=== PATIENT | female | born 1960 | race Caucasian/White ===

== ENCOUNTER 2016-09-06 06:32 | Day surgery (SDC) | payer MEDICARE, MEDICAID ==
[2016-09-06] MEDS ORDERED: Sodium Chloride 0.9% 1,000 ML IV SCH (07:30)
[2016-09-06] MEDS ORDERED: fentaNYL 100 MCG/2 ML SDV ONE (08:18)
[2016-09-06] MEDS ORDERED: Propofol 200 MG/20 ML SDV ONE (08:18)
--- NOTE | 2016-09-06 08:49 | PCM.OPNOTE ---
- General Post-Op/Procedure Note Date of Surgery/Procedure: 09/06/16 Operative Procedure(s): Gastroesophageal duodenoscopy Findings: Retained food in the stomach, distal esophageal mucosal erythema, gastritis mucosal erythema with biopsies pending for Helicobacter pylori, CLOtest. Pre Op Diagnosis: GERD Post-Op Diagnosis: #1. Retained food in the stomach. #2. Gastric mucosal erythema. #3. Distal esophageal mucosal erythema. #4. Mild duodenal mucosal erythema. Biopsy pending for Helicobacter pylori of the gastric mucosa Primary Surgeon: Nelson Warner Sr Condition: Good Free Text/Narrative:: Susan is a 56-year-old female comes in for an esophageal gastroduodenoscopy because of the significant gastroesophageal reflux with any food. She does have significant pain almost immediately after she eats. The risks and benefits were explained to her for an esophageal gastroduodenoscopy. The Olympus 180 scope was used. Anesthesia was given by nurse tent worker. During the procedure use 100 mcg fentanyl and and 30 mg of propofol. The tube was placed into the pharynx and esophagus without difficulty and advanced under direct vision. At the distal esophagus noted significant distal esophageal mucosal erythema. The tube was brought into the stomach which revealed a large amount of fluid retention and retention of blue pills. We finally did get an further and identified the pylorus and the tube was advanced into the first second part of the duodenum. Upon retraction of the tube noted mild duodenal erythema. The tube was brought back into the stomach there revealed mucosal erythema biopsies done for Helicobacter pylori. We got limited observation of the greater and lesser curvature because of retained food particles. There is erythema noted in the fundus area. The GE junction was identified at 40 cm there is erythema noted in that area. The remainder the esophagus was unremarkable. The vocal cords move symmetrically no obvious pathology noted the tube was removed the patient tolerated the procedure well. Preop: Gastroesophageal reflux pain. Postop: #1 distal esophageal mucosal erythema. #2. Retained food in the stomach. #3. Gastric mucosal erythema biopsies pending for Helicobacter pylori. #4. Mild duodenal mucosal erythema. I will follow through with her in the office after the biopsy is reported.
[2016-09-06 09:51] VITALS: BP 101/62
== END 2016-09-06 10:05 | disposition home or self-care (01) ==
LOC: JP.SDS 06:32
PROVIDERS: ATTEND Internal Medicine
DX: T18.2XXA Foreign body in stomach, initial encounter (principal); K31.89 Other diseases of stomach and duodenum; I10 Essential (primary) hypertension; F32.9 Major depressive disorder, single episode, unspecified; K21.9 Gastro-esophageal reflux disease without esophagitis; F17.210 Nicotine dependence, cigarettes, uncomplicated
CPT/HCPCS: 43239; 87081; J2704; J3010; J7040

== ENCOUNTER 2017-03-12 20:48 | Inpatient (IN) | payer MEDICARE, MEDICAID ==
--- NOTE | 2017-03-12 21:03 | EDM.PDOC ---
ED HPI GENERAL MEDICAL PROBLEM - General Stated Complaint: [facility] Time Seen by Provider: 03/12/17 20:50 Source of Information: Reports: Patient, EMS History Limitations: Reports: Altered Mental Status - History of Present Illness INITIAL COMMENTS - FREE TEXT/NARRATIVE: 56-year-old female who tonight took "a half a bottle" of 50 mg trazodone pills. She's also been drinking alcohol all day. She intended to hurt herself. She was hypotensive in route and lethargic but answering questions appropriately and responds to verbal stimulus. Her blood pressure is now normalized after a 500 mL bolus. GCS is 12. Onset: Unknown/Unsure (Likely roughly 2 hours ago) Severity: Moderate Improves with: Reports: Other (Vitals improved with fluid bolus) Back Pain Score (Numeric/FACES): 8 - Related Data Allergies Allergy/AdvReac Type Severity Reaction Status Date / Time No Known Allergies Allergy Verified 09/06/16 06:50 Home Meds: Home Meds Cholecalciferol (Vitamin D3) [Vitamin D3] 2,000 unit PO DAILY 09/04/16 [History] Cranberry Extract [Cranberry] 500 mg PO DAILY 09/04/16 [History] Cyclobenzaprine HCl 10 mg PO DAILY PRN 09/04/16 [History] FLUoxetine [PROzac] 20 mg PO DAILY 09/04/16 [History] Lisinopril 40 mg PO DAILY 09/04/16 [History] Metoprolol Succinate [Toprol XL] 25 mg PO DAILY 09/04/16 [History] Milk Thistle Seed Extract [Milk Thistle] 200 mg PO DAILY 09/04/16 [History] Multivits,Ca,Minerals/Iron/FA [Women's Daily Formula Caplet] 1 each PO DAILY [History] Omeprazole 20 mg PO DAILY 09/04/16 [History] Prednisone [IJP: Prednisone] 10 mg PO DAILY PRN 09/04/16 [History] Prochlorperazine Maleate [Compazine] 20 mg PO QID PRN 09/04/16 [History] traZODone 100 mg PO BEDTIME 09/04/16 [History] Past Medical History HEENT History: Reports: Impaired Vision Cardiovascular History: Reports: Hypertension Respiratory History: Reports: COPD Gastrointestinal History: Reports: Colon Polyp, GERD Genitourinary History: Reports: UTI, Recurrent, Other (See Below) Other Genitourinary History: cirrosis of the liver Musculoskeletal History: Reports: Back Pain, Chronic Neurological History: Reports: Concussion, Headaches, Chronic Psychiatric History: Reports: Depression, PTSD - Infectious Disease History Infectious Disease History: Reports: Chicken Pox, Hepatitis C, Influenza, Measles - Past Surgical History HEENT Surgical History: Reports: Oral Surgery Female Surgical History: Reports: Breast Biopsy Musculoskeletal Surgical History: Reports: Other (See Below) Social & Family History - Tobacco Use Smoking Status *Q: Current Every Day Smoker Years of Tobacco use: 44 Packs/Tins Daily: 0.5 Used Tobacco, but Quit: No - Caffeine Use Caffeine Use: Reports: Coffee - Recreational Drug Use Recreational Drug Use: Yes Drug Use in Last 12 Months: Yes Recreational Drug Type: Reports: Marijuana/Hashish Recreational Drug Use Frequency: Weekly Recreational Drug Last Use: 09/05/2016 ED ROS GENERAL - Review of Systems Review Of Systems: Unable To Obtain (Patient admits to trying to hurt herself but really doesn't want to answer any other questions) ED EXAM, GENERAL - Physical Exam Exam: See Below Exam Limited By: Intoxication General Appearance: Lethargic Eye Exam: Bilateral Eye: EOMI Respiratory/Chest: No Respiratory Distress Cardiovascular: Regular Rate, Rhythm GI/Abdominal: Soft Extremities: Normal Inspection. No: Pedal Edema Neurological: Slow to Respond Skin Exam: Warm, Dry Course - Vital Signs Last Recorded V/S: Last Vital Signs Temp 98.2 F 03/12/17 22:55 Pulse 82 03/12/17 22:55 Resp 18 03/12/17 22:55 BP 123/56 L 03/12/17 22:55 Pulse Ox 91 L 03/12/17 22:55 - Orders/Labs/Meds Orders: Active Orders 24 hr Category Date Time Status Patient Status [ADT] Routine ADT 03/12/17 21:55 Active Ambulate [RC] QID Care 03/12/17 21:55 Active Height and Weight [RC] UPON Care 03/12/17 21:55 Active Intake and Output [RC] QSHIFT Care 03/12/17 21:59 Active May Shower [RC] ASDIRECTED Care 03/12/17 21:55 Active Oxygen Therapy [RC] PRN Care 03/12/17 21:55 Active Up to Chair [RC] QID Care 03/12/17 21:55 Active VTE/DVT Education [RC] Per Unit Routine Care 03/12/17 21:55 Active Vital Signs [RC] Q4H Care 03/12/17 21:55 Active Regular Diet [DIET] Diet 03/13/17 Breakfast Active BASIC METABOLIC PANEL,BMP [CHEM] AM Lab 03/13/17 05:11 Ordered CULTURE URINE [RM] Stat Lab 03/12/17 21:30 Received FLUoxetine [PROzac] Med 03/13/17 09:00 Active 20 mg PO DAILY Pantoprazole [ProTONIX] Med 03/13/17 07:30 Active 40 mg PO ACBREAKFAST Sodium Chloride 0.9% [Normal Saline] 1,000 ml Med 03/12/17 21:15 Active IV ASDIRECTED Thiamine [Vitamin B-1] Med 03/13/17 09:00 Active 100 mg PO BID Resuscitation Status Routine Resus Stat 03/12/17 21:55 Ordered Medication Orders Fluoxetine HCl (Prozac) 20 mg PO DAILY TARA Sodium Chloride (Normal Saline) 1,000 mls @ 1,000 mls/hr IV ASDIRECTED TARA Last Admin: 03/12/17 21:10 Dose: 1,000 mls/hr Dextrose/Sodium Chloride (Dextrose 5%-Normal Saline) 1,000 mls @ 75 mls/hr IV ASDIRECTED TARA Last Admin: 03/12/17 23:33 Dose: 75 mls/hr Pantoprazole Sodium (Protonix) 40 mg PO ACBREAKFAST TARA Thiamine HCl (Vitamin B-1) 100 mg PO BID [facility] Labs: Laboratory Tests 03/12/17 03/12/17 03/12/17 Range/Units 21:03 21:03 21:03 WBC 9.9 (4.5-11.0) K/uL RBC 4.96 (3.30-5.50) M/uL Hgb 15.5 H (12.0-15.0) g/dL Hct 45.4 (36.0-48.0) % MCV 92 (80-98) fL MCH 31 (27-31) pg MCHC 34 (32-36) % Plt Count 256 (150-400) K/uL Neut % (Auto) 38 (36-66) % Lymph % (Auto) 49 H (24-44) % Citrus % (Auto) 9 H (2-6) % Eos % (Auto) 4 (2-4) % Baso % (Auto) 0 (0-1) % Sodium 140 (140-148) mmol/L Potassium 3.5 L (3.6-5.2) mmol/L Chloride 107 (100-108) mmol/L Carbon Dioxide 22 (21-32) mmol/L Anion Gap 14.5 H (5.0-14.0) mmol/L BUN 10 (7-18) mg/dL Creatinine 0.8 (0.6-1.0) mg/dL Est Cr Clr Drug Dosing 63.41 mL/min Estimated GFR (MDRD) > 60 (>60) Glucose 90 (74-106) mg/dL Calcium 8.1 L (8.5-10.1) mg/dL Total Bilirubin 0.4 (0.2-1.0) mg/dL AST 25 (15-37) U/L ALT 20 (12-78) U/L Alkaline Phosphatase 68 (46-116) U/L Total Protein 7.3 (6.4-8.2) g/dL Albumin 3.2 L (3.4-5.0) g/dL Globulin 4.1 H (2.3-3.5) g/dL Albumin/Globulin Ratio 0.8 L (1.2-2.2) Urine Color Urine Appearance Urine pH (4.5-8.0) Ur Specific [place] (1.008-1.030) Urine Protein (NEGATIVE) mg/dL Urine Glucose (UA) (NEGATIVE) mg/dL Urine Ketones (NEGATIVE) mg/dL Urine Occult Blood (NEGATIVE) Urine Nitrite (NEGATIVE) Urine Bilirubin (NEGATIVE) Urine Urobilinogen (NORMAL) mg/dL Ur Leukocyte Esterase (NEGATIVE) Urine RBC (0-5) Urine WBC (0-5) Ur Epithelial Cells Amorphous Sediment Urine Bacteria Urine Mucus Urine Opiates Screen (NEGATIVE) Ur Oxycodone Screen (NEGATIVE) Urine Methadone Screen (NEGATIVE) Ur Propoxyphene Screen (NEGATIVE) Acetaminophen 0.0 L (10.0-30.0) ug/mL Ur Barbiturates Screen (NEGATIVE) Ur Tricyclics Screen (NEGATIVE) Ur Phencyclidine Scrn (NEGATIVE) Ur Amphetamine Screen (NEGATIVE) U Methamphetamines Scrn (NEGATIVE) Urine MDMA Screen (NEGATIVE) U Benzodiazepines Scrn (NEGATIVE) U Cocaine Metab Screen (NEGATIVE) U Marijuana (THC) Screen (NEGATIVE) Ethyl Alcohol 199 mg/dL 03/12/17 03/12/17 Range/Units 21:26 21:26 WBC (4.5-11.0) K/uL RBC (3.30-5.50) M/uL Hgb (12.0-15.0) g/dL Hct (36.0-48.0) % MCV (80-98) fL MCH (27-31) pg MCHC (32-36) % Plt Count (150-400) K/uL Neut % (Auto) (36-66) % Lymph % (Auto) (24-44) % Citrus % (Auto) (2-6) % Eos % (Auto) (2-4) % Baso % (Auto) (0-1) % Sodium (140-148) mmol/L Potassium (3.6-5.2) mmol/L Chloride (100-108) mmol/L Carbon Dioxide (21-32) mmol/L Anion Gap (5.0-14.0) mmol/L BUN (7-18) mg/dL Creatinine (0.6-1.0) mg/dL Est Cr Clr Drug Dosing mL/min Estimated GFR (MDRD) (>60) Glucose (74-106) mg/dL Calcium (8.5-10.1) mg/dL Total Bilirubin (0.2-1.0) mg/dL AST (15-37) U/L ALT (12-78) U/L Alkaline Phosphatase (46-116) U/L Total Protein (6.4-8.2) g/dL Albumin (3.4-5.0) g/dL Globulin (2.3-3.5) g/dL Albumin/Globulin Ratio (1.2-2.2) Urine Color Yellow Urine Appearance Slightly cloudy Urine pH 6.0 (4.5-8.0) Ur Specific [place] 1.015 (1.008-1.030) Urine Protein Negative (NEGATIVE) mg/dL Urine Glucose (UA) Normal (NEGATIVE) mg/dL Urine Ketones Negative (NEGATIVE) mg/dL Urine Occult Blood Large (NEGATIVE) Urine Nitrite Positive H (NEGATIVE) Urine Bilirubin Negative (NEGATIVE) Urine Urobilinogen Normal (NORMAL) mg/dL Ur Leukocyte Esterase Negative (NEGATIVE) Urine RBC 5-10 H (0-5) Urine WBC 10-20 H (0-5) Ur Epithelial Cells Few Amorphous Sediment Not seen Urine Bacteria Many Urine Mucus Few Urine Opiates Screen Negative (NEGATIVE) Ur Oxycodone Screen Negative (NEGATIVE) Urine Methadone Screen Negative (NEGATIVE) Ur Propoxyphene Screen Negative (NEGATIVE) Acetaminophen (10.0-30.0) ug/mL Ur Barbiturates Screen Negative (NEGATIVE) Ur Tricyclics Screen Positive H (NEGATIVE) Ur Phencyclidine Scrn Negative (NEGATIVE) Ur Amphetamine Screen Negative (NEGATIVE) U Methamphetamines Scrn Negative (NEGATIVE) Urine MDMA Screen Negative (NEGATIVE) U Benzodiazepines Scrn Negative (NEGATIVE) U Cocaine Metab Screen Negative (NEGATIVE) U Marijuana (THC) Screen Positive H (NEGATIVE) Ethyl Alcohol mg/dL Meds: Medications Generic Name Dose Route Start Last Admin Trade Name Freq PRN Reason Stop Dose Admin Fluoxetine HCl 20 mg 03/13/17 09:00 Prozac PO DAILY TARA Sodium Chloride 1,000 mls @ 1,000 mls/hr 03/12/17 21:15 03/12/17 21:10 Normal Saline IV 1,000 mls/hr ASDIRECTED TARA Administration Dextrose/Sodium Chloride 1,000 mls @ 75 mls/hr 03/12/17 23:00 03/12/17 23:33 Dextrose 5%-Normal Saline IV 75 mls/hr ASDIRECTED TARA Administration Pantoprazole Sodium 40 mg 03/13/17 07:30 Protonix PO ACBREAKFAST TARA Thiamine HCl 100 mg 03/13/17 09:00 Vitamin B-1 PO BID TARA - Re-Assessments/Exams Free Text/Narrative Re-Assessment/Exam: 03/12/17 21:16 Fluids were continued. A catheter UA was obtained for urine tox screen. CBC, CMP , acetaminophen and EtOH were obtained. Poison control was called and advised just supportive care. Dr. Warner was informed, he will see the patient to admit to ICU for observation. Departure - Departure Time of Disposition: 22:07 Disposition: Admitted As Inpatient 64 Condition: Fair Clinical Impression: Drug overdose, intentional Qualifiers: Encounter type: initial encounter Qualified Code(s): T50.902A - Poisoning by unspecified drugs, medicaments and biological substances, intentional self-harm , initial encounter Suicide attempt by drug ingestion Qualifiers: Encounter type: initial encounter Qualified Code(s): T50.902A - Poisoning by unspecified drugs, medicaments and biological substances, intentional self-harm , initial encounter - Discharge Information - My Orders Last 24 Hours: My Active Orders 03/12/17 21:15 Sodium Chloride 0.9% [Normal Saline] 1,000 ml IV ASDIRECTED 03/12/17 21:30 CULTURE URINE [RM] Stat - Assessment/Plan Last 24 Hours: My Active Orders 03/12/17 21:15 Sodium Chloride 0.9% [Normal Saline] 1,000 ml IV ASDIRECTED 03/12/17 21:30 CULTURE URINE [RM] Stat
[2017-03-12] MEDS ORDERED: Sodium Chloride 0.9% 1,000 ML IV SCH (21:15)
--- NOTE | 2017-03-12 22:13 | PCM.HP ---
H&P History of Present Illness - General Date of Service: 03/12/17 Admit Problem/Dx: Admission Diagnosis/Problem Admission Diagnosis/Problem Suicide Source of Information: Patient, EMS, Old Records History Limitations: Reports: No Limitations - History of Present Illness Initial Comments - Free Text/Narative: She became depressed over her who is in [place] and is terminal due to lung disease. She normally drinks 8 shots daily and took more tonight and took 45 pills of Trazodone 50mg tabs. After she took the Trazodone and Alc. she called EMS. Onset of Symptoms: Reports: Sudden Back Pain Score (Numeric/FACES): 8 - Related Data Allergies/Adverse Reactions: Allergies Allergy/AdvReac Type Severity Reaction Status Date / Time No Known Allergies Allergy Verified 09/06/16 06:50 Home Medications: Home Meds Cholecalciferol (Vitamin D3) [Vitamin D3] 2,000 unit PO DAILY 09/04/16 [History] Cranberry Extract [Cranberry] 500 mg PO DAILY 09/04/16 [History] Cyclobenzaprine HCl 10 mg PO DAILY PRN 09/04/16 [History] FLUoxetine [PROzac] 20 mg PO DAILY 09/04/16 [History] Lisinopril 40 mg PO DAILY 09/04/16 [History] Metoprolol Succinate [Toprol XL] 25 mg PO DAILY 09/04/16 [History] Milk Thistle Seed Extract [Milk Thistle] 200 mg PO DAILY 09/04/16 [History] Multivits,Ca,Minerals/Iron/FA [Women's Daily Formula Caplet] 1 each PO DAILY [History] Omeprazole 20 mg PO DAILY 09/04/16 [History] Prednisone [IJP: Prednisone] 10 mg PO DAILY PRN 09/04/16 [History] Prochlorperazine Maleate [Compazine] 20 mg PO QID PRN 09/04/16 [History] traZODone 100 mg PO BEDTIME 09/04/16 [History] Past Medical History HEENT History: Reports: Impaired Vision Cardiovascular History: Reports: Hypertension Respiratory History: Reports: COPD Gastrointestinal History: Reports: Colon Polyp, GERD Genitourinary History: Reports: UTI, Recurrent, Other (See Below) Other Genitourinary History: cirrosis of the liver Musculoskeletal History: Reports: Back Pain, Chronic Neurological History: Reports: Concussion, Headaches, Chronic Psychiatric History: Reports: Depression, PTSD - Infectious Disease History Infectious Disease History: Reports: Chicken Pox, Hepatitis C, Influenza, Measles - Past Surgical History HEENT Surgical History: Reports: Oral Surgery Female Surgical History: Reports: Breast Biopsy Musculoskeletal Surgical History: Reports: Other (See Below) Other Musculoskeletal Surgeries/Procedures:: right wrist surgery "tendonitis" Social & Family History - Tobacco Use Smoking Status *Q: Current Every Day Smoker Years of Tobacco use: 44 Packs/Tins Daily: 0.5 Used Tobacco, but Quit: No - Caffeine Use Caffeine Use: Reports: Coffee - Alcohol Use Days Per Week of Alcohol Use: 7 Number of Drinks Per Day: 7 Total Drinks Per Week: 49 - Recreational Drug Use Recreational Drug Use: Yes Drug Use in Last 12 Months: Yes Recreational Drug Type: Reports: Marijuana/Hashish Recreational Drug Use Frequency: Weekly Recreational Drug Last Use: 09/05/2016 H&P Review of Systems - Review of Systems: Review Of Systems: See Below General: Reports: Weakness HEENT: Reports: No Symptoms Pulmonary: Reports: No Symptoms Cardiovascular: Reports: No Symptoms Gastrointestinal: Reports: No Symptoms Genitourinary: Reports: No Symptoms, Flank Pain Musculoskeletal: Reports: Neck Pain, Back Pain Skin: Reports: No Symptoms Psychiatric: Reports: Depression, Anxiety, Suicidal Ideation Neurological: Reports: No Symptoms Hematologic/Lymphatic: Reports: No Symptoms Immunologic: Reports: No Symptoms Exam - Exam Exam: See Below - Vital Signs Vital Signs: Last Vital Signs Temp 98.1 F 03/12/17 21:00 Pulse 78 03/12/17 21:00 Resp 23 H 03/12/17 21:00 BP 136/73 03/12/17 21:00 Pulse Ox 95 03/12/17 21:00 Weight: 135 lb - Exam General: Oriented, Moderate Distress HEENT: Other (Blind in the right eye since age 6 ) Lungs: Clear to Auscultation, Normal Respiratory Effort Cardiovascular: Regular Rate, Regular Rhythm GI/Abdominal Exam: Normal Bowel Sounds, Soft, Non-Tender, No Organomegaly, No Distention, No Abnormal Bruit, No Mass, Pelvis Stable Back Exam: CVA Tenderness (L) Extremities: Normal Inspection, Normal Range of Motion, Non-Tender, No Pedal Edema, Normal Capillary Refill Peripheral Pulses: 1+: Radial (L), Radial (R) Skin: Warm, Dry, Intact Neuro Extensive - Mental Status: Oriented x3, Memory Intact DTR: 1+: Bicep (L), Bicep (R) - Patient Data Lab Results Last 24 hrs: Laboratory Results - last 24 hr 03/12/17 03/12/17 03/12/17 Range/Units 21:03 21:03 21:03 WBC 9.9 (4.5-11.0) K/uL RBC 4.96 (3.30-5.50) M/uL Hgb 15.5 H (12.0-15.0) g/dL Hct 45.4 (36.0-48.0) % MCV 92 (80-98) fL MCH 31 (27-31) pg MCHC 34 (32-36) % Plt Count 256 (150-400) K/uL Neut % (Auto) 38 (36-66) % Lymph % (Auto) 49 H (24-44) % [place] % (Auto) 9 H (2-6) % Eos % (Auto) 4 (2-4) % Baso % (Auto) 0 (0-1) % Sodium 140 (140-148) mmol/L Potassium 3.5 L (3.6-5.2) mmol/L Chloride 107 (100-108) mmol/L Carbon Dioxide 22 (21-32) mmol/L Anion Gap 14.5 H (5.0-14.0) mmol/L BUN 10 (7-18) mg/dL Creatinine 0.8 (0.6-1.0) mg/dL Est Cr Clr Drug Dosing 63.41 mL/min Estimated GFR (MDRD) > 60 (>60) Glucose 90 (74-106) mg/dL Calcium 8.1 L (8.5-10.1) mg/dL Total Bilirubin 0.4 (0.2-1.0) mg/dL AST 25 (15-37) U/L ALT 20 (12-78) U/L Alkaline Phosphatase 68 (46-116) U/L Total Protein 7.3 (6.4-8.2) g/dL Albumin 3.2 L (3.4-5.0) g/dL Globulin 4.1 H (2.3-3.5) g/dL Albumin/Globulin Ratio 0.8 L (1.2-2.2) Urine Color Urine Appearance Urine pH (4.5-8.0) Ur Specific [place] (1.008-1.030) Urine Protein (NEGATIVE) mg/dL Urine Glucose (UA) (NEGATIVE) mg/dL Urine Ketones (NEGATIVE) mg/dL Urine Occult Blood (NEGATIVE) Urine Nitrite (NEGATIVE) Urine Bilirubin (NEGATIVE) Urine Urobilinogen (NORMAL) mg/dL Ur Leukocyte Esterase (NEGATIVE) Urine RBC (0-5) Urine WBC (0-5) Ur Epithelial Cells Amorphous Sediment Urine Bacteria Urine Mucus Urine Opiates Screen (NEGATIVE) Ur Oxycodone Screen (NEGATIVE) Urine Methadone Screen (NEGATIVE) Ur Propoxyphene Screen (NEGATIVE) Acetaminophen 0.0 L (10.0-30.0) ug/mL Ur Barbiturates Screen (NEGATIVE) Ur Tricyclics Screen (NEGATIVE) Ur Phencyclidine Scrn (NEGATIVE) Ur Amphetamine Screen (NEGATIVE) U Methamphetamines Scrn (NEGATIVE) Urine MDMA Screen (NEGATIVE) U Benzodiazepines Scrn (NEGATIVE) U Cocaine Metab Screen (NEGATIVE) U Marijuana (THC) Screen (NEGATIVE) Ethyl Alcohol 199 mg/dL 03/12/17 03/12/17 Range/Units 21:26 21:26 WBC (4.5-11.0) K/uL RBC (3.30-5.50) M/uL Hgb (12.0-15.0) g/dL Hct (36.0-48.0) % MCV (80-98) fL MCH (27-31) pg MCHC (32-36) % Plt Count (150-400) K/uL Neut % (Auto) (36-66) % Lymph % (Auto) (24-44) % [place] % (Auto) (2-6) % Eos % (Auto) (2-4) % Baso % (Auto) (0-1) % Sodium (140-148) mmol/L Potassium (3.6-5.2) mmol/L Chloride (100-108) mmol/L Carbon Dioxide (21-32) mmol/L Anion Gap (5.0-14.0) mmol/L BUN (7-18) mg/dL Creatinine (0.6-1.0) mg/dL Est Cr Clr Drug Dosing mL/min Estimated GFR (MDRD) (>60) Glucose (74-106) mg/dL Calcium (8.5-10.1) mg/dL Total Bilirubin (0.2-1.0) mg/dL AST (15-37) U/L ALT (12-78) U/L Alkaline Phosphatase (46-116) U/L Total Protein (6.4-8.2) g/dL Albumin (3.4-5.0) g/dL Globulin (2.3-3.5) g/dL Albumin/Globulin Ratio (1.2-2.2) Urine Color Yellow Urine Appearance Slightly cloudy Urine pH 6.0 (4.5-8.0) Ur Specific [place] 1.015 (1.008-1.030) Urine Protein Negative (NEGATIVE) mg/dL Urine Glucose (UA) Normal (NEGATIVE) mg/dL Urine Ketones Negative (NEGATIVE) mg/dL Urine Occult Blood Large (NEGATIVE) Urine Nitrite Positive H (NEGATIVE) Urine Bilirubin Negative (NEGATIVE) Urine Urobilinogen Normal (NORMAL) mg/dL Ur Leukocyte Esterase Negative (NEGATIVE) Urine RBC 5-10 H (0-5) Urine WBC 10-20 H (0-5) Ur Epithelial Cells Few Amorphous Sediment Not seen Urine Bacteria Many Urine Mucus Few Urine Opiates Screen Negative (NEGATIVE) Ur Oxycodone Screen Negative (NEGATIVE) Urine Methadone Screen Negative (NEGATIVE) Ur Propoxyphene Screen Negative (NEGATIVE) Acetaminophen (10.0-30.0) ug/mL Ur Barbiturates Screen Negative (NEGATIVE) Ur Tricyclics Screen Positive H (NEGATIVE) Ur Phencyclidine Scrn Negative (NEGATIVE) Ur Amphetamine Screen Negative (NEGATIVE) U Methamphetamines Scrn Negative (NEGATIVE) Urine MDMA Screen Negative (NEGATIVE) U Benzodiazepines Scrn Negative (NEGATIVE) U Cocaine Metab Screen Negative (NEGATIVE) U Marijuana (THC) Screen Positive H (NEGATIVE) Ethyl Alcohol mg/dL Result Diagrams: 03/12/17 21:03 03/12/17 21:03 *Q Meaningful Use (ADM) - VTE *Q VTE Criteria *Q: - Stroke *Q Stroke Criteria *Q: - AMI *Q AMI Criteria *Q: Problem List Initiated/Reviewed/Updated: Yes Orders Last 24hrs: Active Orders 24 hr Category Date Time Status Patient Status [ADT] Routine ADT 03/12/17 21:55 Ordered Ambulate [RC] QID Care 03/12/17 21:55 Ordered Height and Weight [RC] UPON Care 03/12/17 21:55 Ordered Intake and Output [RC] QSHIFT Care 03/12/17 21:59 Ordered May Shower [RC] ASDIRECTED Care 03/12/17 21:55 Ordered Oxygen Therapy [RC] PRN Care 03/12/17 21:55 Ordered Up to Chair [RC] QID Care 03/12/17 21:55 Ordered VTE/DVT Education [RC] Per Unit Routine Care 03/12/17 21:55 Ordered Vital Signs [RC] Q4H Care 03/12/17 21:55 Ordered Regular Diet [DIET] Diet 03/13/17 Breakfast Ordered BASIC METABOLIC PANEL,BMP [CHEM] AM Lab 03/13/17 05:11 Ordered CULTURE URINE [RM] Stat Lab 03/12/17 21:30 Received FLUoxetine [PROzac] Med 03/13/17 09:00 Ordered 20 mg PO DAILY Omeprazole [Omeprazole] Med 03/13/17 09:00 Ordered 20 mg PO DAILY Sodium Chloride 0.9% [Normal Saline] 1,000 ml Med 03/12/17 21:15 Active IV ASDIRECTED Thiamine [Vitamin B-1] Med 03/13/17 09:00 Ordered 100 mg PO BID Resuscitation Status Routine Resus Stat 03/12/17 21:55 Ordered Medication Orders Fluoxetine HCl (Prozac) 20 mg PO DAILY TARA Sodium Chloride (Normal Saline) 1,000 mls @ 1,000 mls/hr IV ASDIRECTED TARA Last Admin: 03/12/17 21:10 Dose: 1,000 mls/hr Non-Formulary Medication (Omeprazole [Omeprazole]) 20 mg PO DAILY ON LICENSE OF [facility] Assessment/Plan Comment:: Assessment/Plan: #1. Suicidal etiologies: Alc and Trazodone. Depressed due to her terminal condition. #2. Alcololism: #3. HTN: Will restart meds tomorrow when improved stability physically and mentally. #4. UTI: Culture pending. #5. Depression: Continue with prozac. Psy consult tomorrow. #6. Anxiety: Hold meds presently #7. GERD. Continue with Prilosec. #8. Chronic neck and back pain:
[2017-03-12] MEDS ORDERED: Dextrose 5%-0.9% NaCl 1,000 ML IV SCH (23:00)
[2017-03-13] MEDS ORDERED: Ondansetron 4 MG/2 ML SDV IVPUSH PRN (02:56)
[2017-03-13] MEDS ORDERED: Pantoprazole 40 MG Tab.CR PO SCH (07:30)
--- NOTE | 2017-03-13 08:55 | PCM.PN ---
- General Info Date of Service: 03/13/17 Functional Status: Reports: Pain Controlled - Review of Systems General: Reports: Weakness HEENT: Reports: No Symptoms Pulmonary: Reports: No Symptoms Cardiovascular: Reports: No Symptoms Gastrointestinal: Reports: Nausea, Vomiting Genitourinary: Reports: Frequency Skin: Reports: No Symptoms Psychiatric: Reports: Anxiety - Patient Data Vitals - Most Recent: Last Vital Signs Temp 101 F H 03/13/17 06:04 Pulse 87 03/13/17 06:04 Resp 18 03/13/17 06:04 BP 94/44 L 03/13/17 05:43 Pulse Ox 90 L 03/13/17 06:04 Weight - Most Recent: 135 lb I&O - Last 24 Hours: Intake & Output 03/12/17 03/13/17 03/13/17 22:59 06:59 14:59 Intake Total 608 Output Total 500 Balance 108 Lab Results Last 24 Hours: Laboratory Results - last 24 hr 03/13/17 Range/Units 05:10 Sodium 141 (140-148) mmol/L Potassium 3.8 (3.6-5.2) mmol/L Chloride 110 H (100-108) mmol/L Carbon Dioxide 24 (21-32) mmol/L Anion Gap 10.8 (5.0-14.0) mmol/L BUN 8 (7-18) mg/dL Creatinine 0.8 (0.6-1.0) mg/dL Est Cr Clr Drug Dosing 63.41 mL/min Estimated GFR (MDRD) > 60 (>60) Glucose 101 (74-106) mg/dL Calcium 8.2 L (8.5-10.1) mg/dL Med Orders - Current: Current Medications Ciprofloxacin (Ciprofloxacin Hcl) 500 mg PO BID TARA Fluoxetine HCl (Prozac) 20 mg PO DAILY TARA Sodium Chloride (Normal Saline) 1,000 mls @ 1,000 mls/hr IV ASDIRECTED TARA Last Admin: 03/12/17 21:10 Dose: 1,000 mls/hr Dextrose/Sodium Chloride (Dextrose 5%-Normal Saline) 1,000 mls @ 75 mls/hr IV ASDIRECTED TARA Last Admin: 03/12/17 23:33 Dose: 75 mls/hr Ondansetron HCl (Zofran) 4 mg IVPUSH Q4H PRN PRN Reason: Nausea/Vomiting Last Admin: 03/13/17 03:06 Dose: 4 mg Pantoprazole Sodium (Protonix) 40 mg PO ACBREAKFAST TARA Thiamine HCl (Vitamin B-1) 100 mg PO BID TARA - Exam General: Alert, Oriented, Mild Distress HEENT: Pupils Equal, Pupils Reactive, EOMI, Mucous Membr. Moist/[place] Neck: Supple Lungs: Clear to Auscultation, Normal Respiratory Effort Cardiovascular: Regular Rate, Regular Rhythm GI/Abdominal Exam: Normal Bowel Sounds, Soft, Non-Tender, No Organomegaly, No Distention, No Abnormal Bruit, No Mass, Pelvis Stable Back Exam: Vertebral Tenderness Extremities: Normal Inspection, Normal Range of Motion, Non-Tender, No Pedal Edema, Normal Capillary Refill Peripheral Pulses: 1+: Radial (L), Radial (R) Skin: Warm, Dry, Intact Psy/Mental Status: Alert, Normal Affect, Normal Mood - Problem List Review Problem List Initiated/Reviewed/Updated: Yes - My Orders Last 24 Hours: My Active Orders 03/12/17 23:00 Dextrose 5%-0.9% NaCl [Dextrose 5%-Normal Saline] 1,000 ml IV ASDIRECTED 03/13/17 02:56 Ondansetron [Zofran] 4 mg IVPUSH Q4H PRN 03/13/17 09:00 Ciprofloxacin [Ciprofloxacin HCl] 500 mg PO BID - Plan Plan:: Assessment/Plan: #1. Suicidal etiologies: Not suicidal presently Depressed due to her terminal condition. 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 #3. HTN: Will restart meds as needed. #4. UTI: Culture pending. #5. Depression: Continue with prozac. #6. Anxiety: Hold meds presently #7. GERD. Continue with Prilosec. #8. Chronic neck and back pain: Will discharge to [facility]
[2017-03-13 08:58] VITALS: BP 99/44
[2017-03-13] MEDS ORDERED: Ciprofloxacin 500 MG Tab PO SCH (09:00)
[2017-03-13] MEDS ORDERED: FLUoxetine 20 MG Cap PO SCH (09:00)
[2017-03-13] MEDS ORDERED: Thiamine 100 MG Tab PO SCH (09:00)
--- NOTE | 2017-03-13 09:14 | PCM.DCSUM1 ---
Discharge Summary - Hospital Course Brief History: She became depressed over her who is in [place] and is terminal due to lung disease. She normally drinks 8 shots daily and took more and took 45 pills of Trazodone (50mg tabs). After she took the Trazodone and Alc. she called EMS. - Discharge Data Discharge Date: 03/13/17 Discharge Disposition: DC/Tfer to [facility] Condition: Fair - Patient Summary/Data Operative Procedure(s) Performed: Admitted to ICU and did well except need medicine for alc withdrawl. Also found to have a UTI. Hospital Course: Admitted for an overdose and suicidal attempt using alc. and Trazodone. Had vomiting over night due to alc withdrawl. - Patient Instructions Activity: As Tolerated - Discharge Plan Home Medications: Home Meds FLUoxetine [PROzac] 20 mg PO DAILY 09/04/16 [History] Milk Thistle Seed Extract [Milk Thistle] 200 mg PO DAILY 09/04/16 [History] Multivits,Ca,Minerals/Iron/FA [Women's Daily Formula Caplet] 1 each PO DAILY [History] Omeprazole 20 mg PO DAILY 09/04/16 [History] Prednisone [IJP: Prednisone] 10 mg PO DAILY PRN 09/04/16 [History] Prochlorperazine Maleate [Compazine] 20 mg PO QID PRN 09/04/16 [History] Ciprofloxacin [Ciprofloxacin HCl] 500 mg PO BID tablet 03/13/17 [Rx] Lisinopril 40 mg PO DAILY 30 Days #30 03/13/17 [Rx] Metoprolol Succinate [Toprol XL] 25 mg PO DAILY 30 Days #30 03/13/17 [Rx] Thiamine [Vitamin B-1] 100 mg PO BID tablet 03/13/17 [Rx] Forms: ED Department Discharge Referrals: Nelson Warner Sr, MD [Primary Care Provider] - - Patient Data Vitals - Most Recent: Last Vital Signs Temp 101.1 F H 03/13/17 08:57 Pulse 85 03/13/17 08:57 Resp 16 03/13/17 08:57 BP 99/44 L 03/13/17 08:57 Pulse Ox 90 L 03/13/17 08:57 Weight - Most Recent: 135 lb I&O - Last 24 hours: Intake & Output 03/12/17 03/13/17 03/13/17 22:59 06:59 14:59 Intake Total 608 Output Total 500 Balance 108 Lab Results - Last 24 hrs: Laboratory Results - last 24 hr 03/13/17 Range/Units 05:10 Sodium 141 (140-148) mmol/L Potassium 3.8 (3.6-5.2) mmol/L Chloride 110 H (100-108) mmol/L Carbon Dioxide 24 (21-32) mmol/L Anion Gap 10.8 (5.0-14.0) mmol/L BUN 8 (7-18) mg/dL Creatinine 0.8 (0.6-1.0) mg/dL Est Cr Clr Drug Dosing 63.41 mL/min Estimated GFR (MDRD) > 60 (>60) Glucose 101 (74-106) mg/dL Calcium 8.2 L (8.5-10.1) mg/dL Med Orders - Current: Current Medications Ciprofloxacin (Ciprofloxacin Hcl) 500 mg PO BID [facility] Fluoxetine HCl (Prozac) 20 mg PO DAILY TARA Sodium Chloride (Normal Saline) 1,000 mls @ 1,000 mls/hr IV ASDIRECTED TARA Last Admin: 03/12/17 21:10 Dose: 1,000 mls/hr Dextrose/Sodium Chloride (Dextrose 5%-Normal Saline) 1,000 mls @ 75 mls/hr IV ASDIRECTED TARA Last Admin: 03/12/17 23:33 Dose: 75 mls/hr Ondansetron HCl (Zofran) 4 mg IVPUSH Q4H PRN PRN Reason: Nausea/Vomiting Last Admin: 03/13/17 03:06 Dose: 4 mg Pantoprazole Sodium (Protonix) 40 mg PO ACBREAKFAST [facility] Thiamine HCl (Vitamin B-1) 100 mg PO BID TARA *Q Meaningful Use (DIS) - VTE *Q VTE Criteria *Q: - Stroke *Q Stroke Criteria *Q: - AMI *Q AMI Criteria *Q:
== END 2017-03-13 16:39 | DRG 918 ==
LOC: JP.ED 20:48 → JP.ICU 22:10
PROVIDERS: ADMIT Internal Medicine; ATTEND Internal Medicine
DX: T43.212A Poisoning by selective serotonin and norepinephrine reuptake inhibitors, intentional self-harm, initial encounter (principal); N39.0 Urinary tract infection, site not specified; F10.239 Alcohol dependence with withdrawal, unspecified; T51.0X2A Toxic effect of ethanol, intentional self-harm, initial encounter; Y90.6 Blood alcohol level of 120-199 mg/100 ml; I10 Essential (primary) hypertension; F32.9 Major depressive disorder, single episode, unspecified; F17.210 Nicotine dependence, cigarettes, uncomplicated; F10.229 Alcohol dependence with intoxication, unspecified; R82.79 Other abnormal findings on microbiological examination of urine; F41.9 Anxiety disorder, unspecified; R41.82 Altered mental status, unspecified; R53.83 Other fatigue; I95.9 Hypotension, unspecified; F12.90 Cannabis use, unspecified, uncomplicated; M54.9 Dorsalgia, unspecified; G89.29 Other chronic pain; M54.2 Cervicalgia; K21.9 Gastro-esophageal reflux disease without esophagitis; H54.7 Unspecified visual loss; Z87.440 Personal history of urinary (tract) infections; Z86.19 Personal history of other infectious and parasitic diseases; Z79.52 Long term (current) use of systemic steroids; Z63.79 Other stressful life events affecting family and household
CPT/HCPCS: 36415; 80053; 80305; 81001; 85025; 87086; 87088 ×2; 87186 ×2; 96360; 99285; G0480 ×2; J7040; 80048; 99284; A9270-GY; J2405

== ENCOUNTER 2017-09-15 20:41 | Emergency (ER) | payer MEDICAID, MEDICARE ==
[2017-09-15 21:03] VITALS: BP 162/80
--- NOTE | 2017-09-15 22:54 | EDM.PDOCBH ---
ED HPI GENERAL MEDICAL PROBLEM - General Chief Complaint: Behavioral/Psych Stated Complaint: EVAL Time Seen by Provider: 09/15/17 22:35 Source of Information: Reports: Patient, Old Records, RN History Limitations: Reports: No Limitations - History of Present Illness INITIAL COMMENTS - FREE TEXT/NARRATIVE: 57 yo female presents via police after she got into an argument with her while intoxicated and threatened to stab herself. Now that she is a bit more sober while waiting in the ER and has had time to calm down she realizes that she over reacted and currently denies intent to harm herself and would like to go home. She denies hx of prior suicidal ideation/attempts. Onset: Today Onset Date: 09/15/17 Duration: Hour(s):, Improving Location: Reports: Generalized Quality: Reports: Other (no pain) Improves with: Reports: Other (time) Worsens with: Reports: Other (alcohol coupled with emotional situations.) Context: Reports: Other (excess ETOH) Associated Symptoms: Reports: No Other Symptoms Treatments [employer]: Reports: Other (see below) (none) - Related Data Allergies Allergy/AdvReac Type Severity Reaction Status Date / Time No Known Allergies Allergy Verified 09/15/17 21:12 Home Meds: Home Meds FLUoxetine [PROzac] 20 mg PO DAILY 09/04/16 [History] Milk Thistle Seed Extract [Milk Thistle] 200 mg PO DAILY 09/04/16 [History] Multivits,Ca,Minerals/Iron/FA [Women's Daily Formula Caplet] 1 each PO DAILY [History] Lisinopril 40 mg PO DAILY 30 Days #30 03/13/17 [Rx] Metoprolol Succinate [Toprol XL] 25 mg PO DAILY 30 Days #30 03/13/17 [Rx] amLODIPine Besylate [Amlodipine Besylate] 11 tab PO DAILY 09/15/17 [History] Past Medical History HEENT History: Reports: Impaired Vision Cardiovascular History: Reports: Hypertension Respiratory History: Reports: COPD Gastrointestinal History: Reports: Colon Polyp, GERD Genitourinary History: Reports: UTI, Recurrent, Other (See Below) Other Genitourinary History: cirrosis of the liver Musculoskeletal History: Reports: Back Pain, Chronic Neurological History: Reports: Concussion, Headaches, Chronic Psychiatric History: Reports: Depression, PTSD Oncologic (Cancer) History: Reports: Renal - Infectious Disease History Infectious Disease History: Reports: Chicken Pox, Hepatitis C, Influenza, Measles - Past Surgical History HEENT Surgical History: Reports: Oral Surgery Female Surgical History: Reports: Breast Biopsy Musculoskeletal Surgical History: Reports: Other (See Below) Social & Family History - Tobacco Use Smoking Status *Q: Current Every Day Smoker Years of Tobacco use: 40 Packs/Tins Daily: 0.5 Used Tobacco, but Quit: No - Caffeine Use Caffeine Use: Reports: Coffee - Alcohol Use Days Per Week of Alcohol Use: 7 Number of Drinks Per Day: 7 Total Drinks Per Week: 49 - Recreational Drug Use Recreational Drug Use: Yes Drug Use in Last 12 Months: Yes Recreational Drug Type: Reports: Marijuana/Hashish Recreational Drug Use Frequency: Weekly Recreational Drug Last Use: 09/05/2016 ED ROS GENERAL - Review of Systems Review Of Systems: See Below Constitutional: Reports: No Symptoms HEENT: Reports: No Symptoms Respiratory: Reports: No Symptoms Cardiovascular: Reports: No Symptoms Endocrine: Reports: No Symptoms GI/Abdominal: Reports: Hematochezia (intermittently). Denies: Black Stool, Hematemesis, Melena, Nausea, Vomiting : Reports: Hematuria (waxing and waning for a few months. Does not want this worked up or treated. ) Musculoskeletal: Reports: No Symptoms Skin: Reports: No Symptoms Neurological: Reports: No Symptoms Psychiatric: Reports: Depression. Denies: Homicidal Ideation, Suicidal Ideation (denies now) ED EXAM, BEHAVIORAL HEALTH - Physical Exam Exam: See Below Exam Limited By: No Limitations General Appearance: Alert, WD/WN, No Apparent Distress Eye Exam: Bilateral Eye: Normal Inspection (no conjunctival pallor), PERRL Ears: Normal External Exam, Normal Canal, Hearing Grossly Normal Nose: Normal Inspection, Normal Mucosa, No Blood Throat/Mouth: Normal Inspection, Normal Lips, Normal Oropharynx, Normal Voice, No Airway Compromise Head: Atraumatic, Normocephalic Neck: Normal Inspection, Supple, Non-Tender Respiratory/Chest: No Respiratory Distress, Lungs Clear, Normal Breath Sounds, No Accessory Muscle Use Cardiovascular: Regular Rate, Rhythm GI/Abdominal: Normal Bowel Sounds, Soft, Non-Tender, No Distention Back Exam: Normal Inspection. No: CVA Tenderness (R), CVA Tenderness (L) Extremities: Normal Inspection, Normal Range of Motion, Non-Tender, No Pedal Edema Neurological: Alert, Normal Mood/Affect, CN II-XII Intact, Normal Cognition, No Motor/Sensory Deficits, Oriented x 3 Psychiatric: Alert, Normal Affect, Normal Cognition, Normal Mood, Oriented Skin Exam: Warm, Dry, Intact, Normal color, No rash COURSE, BEHAVIORAL HEALTH COMP - Course Vital Signs: Last Vital Signs Temp 36.0 C 09/15/17 21:29 Pulse 80 09/15/17 21:29 Resp 16 09/15/17 21:29 BP 162/80 H 09/15/17 21: Pulse Ox 95 09/15/17 21:29 Orders, Labs, Meds: Laboratory Tests 09/15/17 Range/Units 21:19 Ethyl Alcohol 213 mg/dL Departure - Departure Time of Disposition: 23:10 Disposition: Home, Self-Care 01 Condition: Good Clinical Impression: Alcohol abuse Alcohol intoxication Qualifiers: Complication of substance-induced condition: with unspecified complication Qualified Code(s): F10.929 - Alcohol use, unspecified with intoxication, unspecified Suicide gesture Qualifiers: Encounter type: initial encounter Qualified Code(s): X83.8XXA - Intentional self-harm by other specified means, initial encounter - Discharge Information Referrals: Nelson Warner Sr, MD [Primary Care Provider] -
== END 2017-09-15 23:36 | disposition home or self-care (01) ==
LOC: JP.ED 20:41
DX: F10.129 Alcohol abuse with intoxication, unspecified (principal); Y90.7 Blood alcohol level of 200-239 mg/100 ml; M25.512 Pain in left shoulder; F17.210 Nicotine dependence, cigarettes, uncomplicated; I10 Essential (primary) hypertension; J44.9 Chronic obstructive pulmonary disease, unspecified; Z79.899 Other long term (current) drug therapy; X83.8XXA Intentional self-harm by other specified means, initial encounter; Y92.009 Unspecified place in unspecified non-institutional (private) residence as the place of occurrence of the external cause
CPT/HCPCS: 36415; 99283; G0480; 99282

== ENCOUNTER 2019-03-09 03:21 | Emergency (ER) | payer MEDICARE ==
[2019-03-09 03:39] VITALS: BP 92/55; PULSE 62
[2019-03-09] MEDS ORDERED: LORazepam 2 MG/ML SDV IM ONE (04:02)
--- NOTE | 2019-03-09 04:07 | EDM.PDOCBH ---
<OfficerDiogo - Last Filed: 03/09/19 04:20> ED HPI GENERAL MEDICAL PROBLEM - General Chief Complaint: Behavioral/Psych Stated Complaint: EVAL Time Seen by Provider: 03/09/19 03:50 Source of Information: Reports: Patient, Old Records, RN Notes Reviewed History Limitations: Reports: Intoxication - History of Present Illness INITIAL COMMENTS - FREE TEXT/NARRATIVE: 58-year-old female presents to emergency department today via law enforcement she is currently intoxicated had made suicidal threats and gestures at home with her present. Threatening to stab herself with a knife. She admits to being depressed is currently under significant social stress does have suicidal ideation with a plan. This story is very similar to prior ED admission and evaluation approximate 6 months ago - Related Data Allergies Allergy/AdvReac Type Severity Reaction Status Date / Time No Known Allergies Allergy Verified 03/09/19 03:36 Home Meds: Home Meds FLUoxetine [PROzac] 20 mg PO DAILY 09/04/16 [History] Milk Thistle Seed Extract [Milk Thistle] 200 mg PO DAILY 09/04/16 [History] Multivits,Ca,Minerals/Iron/FA [Women's Daily Formula Caplet] 1 each PO DAILY [History] Lisinopril 40 mg PO DAILY 30 Days #30 03/13/17 [Rx] Metoprolol Succinate [Toprol XL] 25 mg PO DAILY 30 Days #30 03/13/17 [Rx] amLODIPine Besylate [Amlodipine Besylate] 11 tab PO DAILY 09/15/17 [History] Past Medical History HEENT History: Reports: Impaired Vision, Other (See Below) Other HEENT History: blind right eye Cardiovascular History: Reports: Hypertension Respiratory History: Reports: COPD Gastrointestinal History: Reports: Colon Polyp, GERD Genitourinary History: Reports: UTI, Recurrent, Other (See Below) Other Genitourinary History: cirrosis of the liver Musculoskeletal History: Reports: Back Pain, Chronic Neurological History: Reports: Concussion, Headaches, Chronic Psychiatric History: Reports: Depression, PTSD, Suicide Attempt, Suicidal Ideation Oncologic (Cancer) History: Reports: Renal - Infectious Disease History Infectious Disease History: Reports: Chicken Pox, Hepatitis C, Influenza, Measles - Past Surgical History HEENT Surgical History: Reports: Oral Surgery GI Surgical History: Reports: Cholecystectomy Female Surgical History: Reports: Breast Biopsy Musculoskeletal Surgical History: Reports: Other (See Below) Social & Family History - Tobacco Use Smoking Status *Q: Current Every Day Smoker Years of Tobacco use: 40 Packs/Tins Daily: 1 - Caffeine Use Caffeine Use: Reports: Coffee - Alcohol Use Date of Last Drink: 03/09/19 - Recreational Drug Use Recreational Drug Use: Yes Drug Use in Last 12 Months: Yes Recreational Drug Type: Reports: Marijuana/Hashish Recreational Drug Use Frequency: Daily ED ROS GENERAL - Review of Systems Review Of Systems: See Below Constitutional: Reports: No Symptoms HEENT: Reports: No Symptoms Respiratory: Reports: No Symptoms Cardiovascular: Reports: No Symptoms Psychiatric: Reports: Suicidal Ideation. Denies: Hallucinations, Homicidal Ideation ED EXAM, BEHAVIORAL HEALTH - Physical Exam Exam: See Below Exam Limited By: No Limitations General Appearance: Alert, WD/WN, No Apparent Distress Head: Atraumatic, Normocephalic Respiratory/Chest: No Respiratory Distress, Lungs Clear, Normal Breath Sounds, No Accessory Muscle Use, Chest Non-Tender Cardiovascular: Regular Rate, Rhythm, No Murmur Psychiatric: Alert, Uncooperative, Suicidal Plan, Suicidal Thoughts COURSE, BEHAVIORAL HEALTH COMP - Course Vital Signs: Last Vital Signs Temp 98 F 03/09/19 03:56 Pulse 62 03/09/19 03:56 Resp 16 03/09/19 03:56 BP 92/55 L 03/09/19 03:56 Pulse Ox 96 03/09/19 03:56 Orders, Labs, Meds: Active Orders 24 hr Category Date Time Status Initiate/Renew Non-Violent Restraints (All Ages) Q24H Care 03/09/19 04:19 Ordered Nrsg Assess Restraint Init/Mon [RC] Q1H Care 03/09/19 04:19 Active Suicide Precautions [RC] Q15M Care 03/09/19 04:19 Active Laboratory Tests 03/09/19 03/09/19 03/09/19 Range/Units 04:19 05:25 05:25 WBC 8.8 (4.5-11.0) K/uL RBC 4.48 (3.30-5.50) M/uL Hgb 13.5 D (12.0-15.0) g/dL Hct 40.4 (36.0-48.0) % MCV 90 (80-98) fL MCH 30 (27-31) pg MCHC 33 (32-36) % Plt Count 181 (150-400) K/uL Neut % (Auto) 48 (36-66) % Lymph % (Auto) 40 (24-44) % Harmon % (Auto) 10 H (2-6) % Eos % (Auto) 2 (2-4) % Baso % (Auto) 0 (0-1) % Sodium 142 (140-148) mmol/L Potassium 3.6 (3.6-5.2) mmol/L Chloride 106 (100-108) mmol/L Carbon Dioxide 24 (21-32) mmol/L Anion Gap 12.3 (5.0-14.0) mmol/L BUN 15 D (7-18) mg/dL Creatinine 0.9 (0.6-1.0) mg/dL Est Cr Clr Drug Dosing 54.99 mL/min Estimated GFR (MDRD) > 60 (>60) Glucose 96 (74-106) mg/dL Calcium 8.2 L (8.5-10.1) mg/dL Total Bilirubin 0.3 (0.2-1.0) mg/dL AST 21 (15-37) U/L ALT 15 (12-78) U/L Alkaline Phosphatase 61 (46-116) U/L Total Protein 6.8 (6.4-8.2) g/dL Albumin 3.2 L (3.4-5.0) g/dL Globulin 3.6 H (2.3-3.5) g/dL Albumin/Globulin Ratio 0.9 L (1.2-2.2) Urine Opiates Screen Negative (NEGATIVE) Ur Oxycodone Screen Presumptive positive H (NEGATIVE) Urine Methadone Screen Negative (NEGATIVE) Ur Propoxyphene Screen Negative (NEGATIVE) Ur Barbiturates Screen Negative (NEGATIVE) Ur Tricyclics Screen Negative (NEGATIVE) Ur Phencyclidine Scrn Negative (NEGATIVE) Ur Amphetamine Screen Negative (NEGATIVE) U Methamphetamines Scrn Negative (NEGATIVE) Urine MDMA Screen Negative (NEGATIVE) U Benzodiazepines Scrn Negative (NEGATIVE) U Cocaine Metab Screen Negative (NEGATIVE) U Marijuana (THC) Screen Presumptive positive H (NEGATIVE) Ethyl Alcohol mg/dL 03/09/19 Range/Units 05:25 WBC (4.5-11.0) K/uL RBC (3.30-5.50) M/uL Hgb (12.0-15.0) g/dL Hct (36.0-48.0) % MCV (80-98) fL MCH (27-31) pg MCHC (32-36) % Plt Count (150-400) K/uL Neut % (Auto) (36-66) % Lymph % (Auto) (24-44) % Harmon % (Auto) (2-6) % Eos % (Auto) (2-4) % Baso % (Auto) (0-1) % Sodium (140-148) mmol/L Potassium (3.6-5.2) mmol/L Chloride (100-108) mmol/L Carbon Dioxide (21-32) mmol/L Anion Gap (5.0-14.0) mmol/L BUN (7-18) mg/dL Creatinine (0.6-1.0) mg/dL Est Cr Clr Drug Dosing mL/min Estimated GFR (MDRD) (>60) Glucose (74-106) mg/dL Calcium (8.5-10.1) mg/dL Total Bilirubin (0.2-1.0) mg/dL AST (15-37) U/L ALT (12-78) U/L Alkaline Phosphatase (46-116) U/L Total Protein (6.4-8.2) g/dL Albumin (3.4-5.0) g/dL Globulin (2.3-3.5) g/dL Albumin/Globulin Ratio (1.2-2.2) Urine Opiates Screen (NEGATIVE) Ur Oxycodone Screen (NEGATIVE) Urine Methadone Screen (NEGATIVE) Ur Propoxyphene Screen (NEGATIVE) Ur Barbiturates Screen (NEGATIVE) Ur Tricyclics Screen (NEGATIVE) Ur Phencyclidine Scrn (NEGATIVE) Ur Amphetamine Screen (NEGATIVE) U Methamphetamines Scrn (NEGATIVE) Urine MDMA Screen (NEGATIVE) U Benzodiazepines Scrn (NEGATIVE) U Cocaine Metab Screen (NEGATIVE) U Marijuana (THC) Screen (NEGATIVE) Ethyl Alcohol 209 mg/dL Medications Discontinued Medications Generic Name Dose Route Start Last Admin Trade Name Freq PRN Reason Stop Dose Admin Diphenhydramine HCl 25 mg 03/09/19 04:09 03/09/19 04:20 Benadryl IM 03/09/19 04:10 25 mg ONETIME ONE Administration Haloperidol Lactate 5 mg 03/09/19 04:09 03/09/19 04:21 Haldol IM 03/09/19 04:10 5 mg ONETIME ONE Administration Lorazepam 1 mg 03/09/19 04:02 03/09/19 04:20 Ativan IM 03/09/19 04:03 1 mg .ONETIME ONE Administration Re-Assessment/Re-Exam: Patient became very agitated and threatened to leave started to walk out the door in her bathrobe and slippers would no longer cooperate with nursing staff or myself because of her threats of suicidal ideation while she is intoxicated elected to place her on a 72 hour hold law enforcement was called for assistance in bring her back to the emergency department. At which time she was placed in a locked room and medications provided of Ativan, Haldol and Benadryl Departure - Departure Disposition: Home, Self-Care 01 Clinical Impression: Alcohol intoxication Qualifiers: Complication of substance-induced condition: with unspecified complication Qualified Code(s): F10.929 - Alcohol use, unspecified with intoxication, unspecified - Discharge Information Instructions: Alcohol Intoxication, [id number] Referrals: Nelson Warner Sr, MD [Primary Care Provider] - Forms: ED Department Discharge Care Plan Goals: Continue any current medications but avoid alcohol intake in the future. <Mustapha Jimenez - Last Filed: 03/09/19 09:50> COURSE, BEHAVIORAL HEALTH COMP - Course Re-Assessment/Re-Exam: Patient care turned over from Officer while she was sleeping off the effects of alcohol. She now is woke up, wants to go home and has no suicidal ideation. She was allowed to call her to come and get her. Departure - Departure Time of Disposition: 09:40
[2019-03-09] MEDS ORDERED: diphenhydrAMINE 50 MG/ML SDV IM ONE (04:09)
[2019-03-09] MEDS ORDERED: Haloperidol Lactate 5 MG/ML SDV IM ONE (04:09)
== END 2019-03-09 09:41 | disposition home or self-care (01) ==
LOC: JP.ED 03:21
DX: F10.129 Alcohol abuse with intoxication, unspecified (principal); Y90.7 Blood alcohol level of 200-239 mg/100 ml; I10 Essential (primary) hypertension; J44.9 Chronic obstructive pulmonary disease, unspecified; F32.9 Major depressive disorder, single episode, unspecified; F17.210 Nicotine dependence, cigarettes, uncomplicated; Z79.899 Other long term (current) drug therapy
CPT/HCPCS: 36415; 80053; 80305-QW; 85025; 96372; 99285-25; G0480; J1200; J1630; J2060

== ENCOUNTER 2022-07-10 15:31 | Emergency (ER) | payer MEDICARE ==
[2022-07-10] MEDS ORDERED: Sodium Chloride 0.9% 1,000 ML IV ONE (16:10)
[2022-07-10 18:05] LABS: ESTIMATED GFR 82 mL/min (>60)
[2022-07-10 18:18] VITALS: BP 162/85; PULSE 88
[2022-07-10] MEDS ORDERED: Sodium Chloride 0.9% 1,000 ML IV SCH (18:30)
== END 2022-07-10 19:31 | disposition home or self-care (01) ==
LOC: JP.ED 15:31
DX: K60.2 Anal fissure, unspecified (principal); I10 Essential (primary) hypertension; J44.9 Chronic obstructive pulmonary disease, unspecified; K21.9 Gastro-esophageal reflux disease without esophagitis; F17.210 Nicotine dependence, cigarettes, uncomplicated; Z79.899 Other long term (current) drug therapy
CPT/HCPCS: 36415; 80053; 85025; 96360; 96361; 99284; J7030